=== PATIENT | female | born 1980 | race Caucasian/White ===

== ENCOUNTER → 2016-06-18 | Day surgery (SDC) | payer OTHER ==
[~2016-06-18] MED LIST: ADDE20TA OR; BUPIVACAINE/EPINEPHRINE 0.5% PF 30 ML VIAL ONE; DICY1TAB26 PO; IMIT25TA PO; KETOROLAC TROMETHAMINE 30 MG/ML (IVP) VIAL IV PUSH ONE; LACTATED RINGER'S 1000 ML INJ 1,000 ML ONE; MIDAZOLAM HCL 2 MG/2 ML VIAL ONE; NEUR300C OR; ONDANSETRON HCL 4 MG/2 ML VIAL IV PUSH ONE; OXYC5 PO; PROPOFOL 200 MG/20 ML AMP IV ONE; TRIAMCINOLONE ACETONIDE 40 MG/ML VIAL ONE; ZOFR4TAB3 SL; ceFAZolin INJ 1,000 MG VIAL ONE
--- NOTE | 2016-06-19 07:46 | MP ---
cc: BLAKE ARANDA DATE OF SURGERY June 18, 2016 PREOPERATIVE DIAGNOSIS Right knee medial meniscal tear. POSTOPERATIVE DIAGNOSIS Right knee medial meniscal tear. SURGEON: Blake Aranda MD DIGITAL STRATEGY MANAGER: TOMÁS Balderas The surgical procedure was assisted by my Advanced Registered Nurse Practitioner. My SEISMOGRAPH SUPERVISOR's presence was necessary throughout this case for the manipulation and positioning of the surgical extremity. My SEISMOGRAPH SUPERVISOR was assisting me throughout the duration of this procedure. The skill set of an Advanced Registered Nurse Practitioner was medically necessary to complete this procedure. During the surgical case, the surgical services tech was working at the back table and the Advanced Registered Nurse Practitioner was directly assisting me. PROCEDURE Right knee arthroscopic partial medial meniscectomy. ESTIMATED BLOOD LOSS Minimal. TOURNIQUET TIME 0 minutes. PROCEDURE The patient was brought back to the operative theatre. General anesthesia was administered. The right lower extremity was prepped and draped in the usual sterile fashion. We made a standard inferolateral portal, followed by inferomedial portal under spinal needle visualization. The suprapatellar pouch had minimal synovitis. The patellofemoral joint was unremarkable, without chndromalacia. The medial compartment showed minimal grade 1 chondromalacia about the medial femoral condyle. We did identify that there was a complex tear of the medial meniscus which mostly encompassed the junction of the body and the posterior horn but the posterior horn part of it was subluxing into the joint and even part of the tear extended towards the anterior horn on the inner edge. The anterior cruciate ligament was intact. The lateral compartment was free of chondromalacia with no lateral meniscal tear. We then proceeded with a partial medial meniscectomy using a combination of meniscal biter and several different jace to perform the partial medial meniscectomy, removing unstable segments of the meniscus. We removed mostly the meniscus around the junction of the body and the posterior horn but we did shave all the way up into the anterior horn. Overall about 35% of the meniscus was removed. We made sure there were no loose bodies in the medial or lateral gutter and no loose debris up in the suprapatellar pouch. The arthroscopic portals were closed with 2-0 Vicryl and 3-0 nylon. We also gave an intraarticular injection of 0.25% Marcaine with epinephrine and 40 mg of Kenalog. The leg was dressed. Postop plan is to weight-bear as tolerated and early range of motion. MD LISANDRA Church/JARAD /3:26 PM /7:30 AM
== END | disposition home or self-care (01) ==
LOC: ESDC 12:42
PROVIDERS: ATTEND Orthopaedic Surgery
DX: S83.231A Complex tear of medial meniscus, current injury, right knee, initial encounter (principal)
CPT/HCPCS: 01400; 29881; J0690; J1885; J2250; J2405; J3010; J3301; J7120